=== PATIENT | male | born 1950 | race Caucasian/White ===

== ENCOUNTER 2016-11-06 10:32 | Outpatient (CLI) | payer MEDICARE, OTHER ==
[2016-11-06 11:06] LABS: BASOPHILS % 0.5 (0.0-1.5); EOSINOPHILS % 1.4 % (0.0-6.8); MEAN CORPUSCULAR HEMOGLOBIN 32.1 pg (28.0-34.0); MEAN CORPUSCULAR VOLUME 95.8 fl (80.0-100.0); NEUTROPHILS # 2.3 # k/uL (1.4-7.7)
[2016-11-06 11:28] LABS: eGFR (African) > 60; eGFR (Non-African) > 60
== END 2016-11-06 10:33 ==
LOC: LAB 10:32
PROVIDERS: ATTEND Family Medicine
DX: E78.00 Pure hypercholesterolemia, unspecified (principal); I10 Essential (primary) hypertension; N40.0 Benign prostatic hyperplasia without lower urinary tract symptoms; M10.9 Gout, unspecified
CPT/HCPCS: 36415; 80053; 80061; 84153; 84550; 85025